=== PATIENT | male | born 1970 | race Native Hawaiian/Other Pacific Islander ===

== ENCOUNTER 2025-01-08 14:57 | Emergency (ER) | payer MEDICAID, SELFPAY ==
[2025-01-08 15:12] VITALS: BP 136/81; PULSE 124; RESP 18; TEMP 36.9; O2SAT 97; BMI 28.2
--- NOTE | 2025-01-08 15:49 | XR_ITS ---
Examination: PA chest single view Technique: Upright PA chest single view Exam date and time: January 08, 2025 1609 hrs. Indications: Shortness of breath coughing beginning one week ago. Findings: 14 x 10 cm masslike area in the right lung Mild prominence of ventricle No pulmonary edema Moderate osteopenia Impression: Large masslike area in the right lung, recommend CT scan chest post intravenous contrast follow-up to exclude pulmonary neoplasm
--- NOTE | 2025-01-08 15:51 | PD.EDADULT ---
ED General RME/HPI General Chief complaint: Flu Like Symptoms Stated complaint: Flu like symptoms Time Seen by Provider: 01/08/25 15:38 Arrival date/time: 01/08/25 14:57 RME / HPI RME / HPI narrative: 54-year-old male Citizen Of [place] patient with significant history of diabetes mellitus, chronic alcoholism, came in for evaluation regarding flulike symptoms. Patient has been having flulike symptoms for the last 5 days, initially noticed as cough, body aches, fever, abdominal pain, severity moderate. Patient denies any vomiting. Denies any diarrhea. Denies any other complaints. No medication was taken prior to ER visit. Patient arrived in this country more than [place] ago. Related Data Allergies Allergy/AdvReac Type Severity Reaction Status Date / Time No Known Allergies Allergy Verified 01/08/25 15:02 Review of Systems Review of Systems Narrative Review of Systems: Review of system reviewed and within normal limits except mentioned in HPI ED Exam Narrative Physical exam: VITAL SIGNS: Reviewed. GENERAL APPEARANCE: Alert and interactive, follows commands, no acute distress, HEAD AND FACE: Non-traumatic. ENT: PERRL, pink conjunctivitis, eyelid no trauma, Mucous membrane moist. NECK: Supple, nontender, no nuchal rigidity. CHEST: No tenderness, no crepitus, no paradoxical movement, no retractions. LUNGS: Clear, well ventilated, symmetric, no rales, no wheezing, no ronchi, no stridor, good breath sounds bilaterally. HEART: Regular rate, regular rhythm, no murmur, no gallops. ABDOMEN: Soft, positive bowel sounds, nondistended, no guarding, nontender, no rebound, no masses, RECTAL: Deferred. GENITAL: Deferred. NEUROLOGICAL: Gross motor function intact sensory function intact, Appropriate for age. MUSCULOSKELETAL: low back nontender, full range of motion. EXTREMITIES: Nontender, full range of motion. SKIN: Color pink, dry, no rash, no lacerations, no abrasions, no contusions. LYMPHATICS: Deferred. Course Quality Measures none Orders Category Date Time Status Bedside COVID-19 Antigen Test NOW Care 01/08/25 16:03 Completed Bedside Influenza A&B Antigen Test NOW Care 01/08/25 16:[address] Screening NOW Care 01/08/25 18:46 Completed EKG (ED ONLY) *Do not use* NOW Care 01/08/25 15:[address] chest abdomen pelvis w Stat Exams 01/08/25 18:45 Completed EKG (ED Only) Stat Exams 01/08/25 15:57 Draft XR chest 1V Stat Exams 01/08/25 15:49 Completed Acetone [Beta Hydroxybutyrate] Stat Lab 01/08/25 16:25 Completed B-Type Natriuretic Peptide Stat Lab 01/08/25 16:25 Completed CBC Stat Lab 01/08/25 16:25 Completed Cocci Serology IgM with reflex to IgG [Cocci Serology, Lab 01/08/25 20:30 Received Unk History] Stat Comprehensive Metabolic Panel Stat Lab 01/08/25 16:25 Completed Drug Screen,Urine Stat Lab 01/08/25 21:00 Completed Hemoglobin A1C [Glycohemoglobin w (eAG)] Stat Lab 01/08/25 16:25 Completed Partial Thromboplastin Time Stat Lab 01/08/25 16:25 Completed Procalcitonin Stat Lab 01/08/25 20:30 Completed Prothrombin Time with INR Stat Lab 01/08/25 16:25 Completed Troponin I Stat Lab 01/08/25 16:25 Completed Urinalysis, C/S if Indicated Stat Lab 01/08/25 21:00 Completed Acetaminophen Tab [Tylenol Tab] Med 01/08/25 19:59 Discontinued 1,000 mg PO X1 ONE Acetaminophen Tab [Tylenol Tab] Med 01/09/25 04:31 Discontinued 1,000 mg PO X1 ONE Clindamycin/Ns 600 mg Ivpb [Cleocin/Ns Ivpb] Med 01/09/25 04:33 Discontinued 600 mg in 50 ml IV X1 Ketorolac Inj [Toradol Inj] Med 01/09/25 04:34 Discontinued 30 mg IVP X1 ONE Piper/Tazo 3.375 gm Premix [Zosyn] Med 01/08/25 18:45 Discontinued 3.375 gm in 50 ml IV X1 Potassium Chloride [K-Dur] Med 01/08/25 20:06 Discontinued 40 meq PO X1 ONE Potassium Chloride [K-Dur] Med 01/09/25 05:53 Discontinued 40 meq PO X1 ONE Sodium Chloride 0.9% 1000 ml [Ns] 1,000 ml Med 01/08/25 15:51 Discontinued IV 999 mls/hr Vancomycin Inj 1,000 mg Med 01/09/25 05:53 Discontinued Sodium Chloride 0.9% 250 ml [Ns] 250 ml IV X1 cefTRIAXone/D5w 1gm IV premix [Rocephin/D5w 1gm IV Med 01/09/25 21:00 Discontinued premix] 1 gm in 50 ml IV Q12HR cefTRIAXone/D5w 1gm IV premix [Rocephin/D5w 1gm IV Med 01/09/25 04:45 Discontinued premix] 1 gm in 50 ml IV X1 Vital Signs Vital signs: Vital Signs Temperature 98.5 F 01/08/25 15:12 Pulse Rate 124 H 01/08/25 15:12 Respiratory Rate 18 01/08/25 15:12 Blood Pressure 136/81 H 01/08/25 15:12 Pulse Oximetry (%) 97 01/08/25 15:12 [facility] Patient data External records reviewed:: None Clinical information provided by:: patient Social determinants that could affect healthcare access:: none Patient has the following chronic illnesses:: Diabetes mellitus How is presenting disease/condition affected by chronic disease/condition?: exacerbated by Evaluation data The following diagnostics were reviewed and interpreted by me:: lab results, radiology exam(s) and EKG tracing(s) Lab and/or radiology exams considered but not ordered:: None Interpretation Summary: See results MDM Medications Medications considered but not ordered:: None Medication administrations:: Medication Administration History Discontinued Medications Acetaminophen (Acetaminophen 325 Mg Tablet) 1,000 mg PO X1 ONE Stop: 01/08/25 20:00 Last Admin: 01/08/25 20:15 Dose: 1,000 mg Documented By: MARGUERITE Acetaminophen (Acetaminophen 325 Mg Tablet) 1,000 mg PO X1 ONE Stop: 01/09/25 04:32 Last Admin: 01/09/25 05:21 Dose: 1,000 mg Documented By: MARGUERITE Sodium Chloride (Ns) 1,000 mls @ 999 mls/hr IV .Q1H1M ONE Stop: 01/08/25 16:51 Last Infusion: 01/08/25 21:40 Dose: Infused Documented By: Admin: 01/08/25 20:36 Dose: 999 mls/hr Documented By: MARGUERITE Piperacillin/Tazobactam/Dextrose (Zosyn) 3.375 gm in 50 mls @ 100 mls/hr IV X1 ONE Stop: 01/08/25 19:14 Last Infusion: 01/08/25 21:15 Dose: Infused Documented By: Admin: 01/08/25 20:34 Dose: 100 mls/hr Documented By: MARGUERITE Ceftriaxone Sodium/Dextrose (Rocephin/D5w 1gm Iv Premix) 1 gm in 50 mls @ 100 mls/hr IV Q12HR CHRISTIANO Stop: 01/16/25 20:59 Clindamycin/Sodium Chloride (Cleocin/Ns Ivpb) 600 mg in 50 mls @ 100 mls/hr IV X1 ONE Stop: 01/09/25 05:02 Last Infusion: 01/09/25 06:00 Dose: Infused Documented By: Admin: 01/09/25 05:25 Dose: 100 mls/hr Documented By: MARGUERITE Ceftriaxone Sodium/Dextrose (Rocephin/D5w 1gm Iv Premix) 1 gm in 50 mls @ 100 mls/hr IV X1 ONE Stop: 01/09/25 05:14 Last Infusion: 01/09/25 05:55 Dose: Infused Documented By: Admin: 01/09/25 05:24 Dose: 100 mls/hr Documented By: MARGUERITE Vancomycin HCl 1,000 mg/ (Sodium Chloride) 250 mls @ 150 mls/hr IV X1 ONE Stop: 01/09/25 07:32 Last Admin: 01/09/25 06:46 Dose: 150 mls/hr Documented By: MARGUERITE Ketorolac Tromethamine (Ketorolac Inj 30 Mg/Ml Vial) 30 mg IVP X1 ONE Stop: 01/09/25 04:35 Last Admin: 01/09/25 05:22 Dose: 30 mg Documented By: MARGUERITE Potassium Chloride (Potassium Chloride 20 Meq Tabcr) 40 meq PO X1 ONE Stop: 01/08/25 20:07 Last Admin: 01/08/25 20:58 Dose: 40 meq Documented By: Admin: 01/08/25 20:57 Dose: 40 meq Documented By: MARGUERITE Potassium Chloride (Potassium Chloride 20 Meq Tabcr) 40 meq PO X1 ONE Stop: 01/09/25 05:54 Last Admin: 01/09/25 06:46 Dose: 40 meq Documented By: MARGUERITE Potassium, IV Zosyn, IV fluids , Tylenol Consultations Consultation(s) initiated? (list below): No Diagnosis Differential Diagnosis ED Complaint MDM: Sepsis, pulmonary mass, Most likely diagnosis given after review of the tests above:: Sepsis, pulmonary mass rule out cocci Admission Indicated Admission indicated?: indicated Explain why admission is indicated or not indicated:: Pending final disposition Admission Request Was there a request for admission?: No Disposition Plan Disposition Plan: Transfer Medical Decision Making [facility] Narrative MDM Narrative: 54-year-old male Citizen Of [place] patient with significant history of diabetes mellitus, chronic alcoholism, came in for evaluation regarding flulike symptoms. Patient has been having flulike symptoms for the last 5 days, initially noticed as cough, body aches, fever, abdominal pain, severity moderate. Patient denies any vomiting. Denies any diarrhea. Denies any other complaints. No medication was taken prior to ER visit. Patient arrived in this country more than a year ago. Patient's workup was significant for leukocytosis of 21,000. With neutrophil predominance. Potassium 3.0 hemoglobin A1c of 10.8 Pro-Tae of 0.69 urinalysis no UTI. Chest x-ray showed Large masslike area in the right lung, recommend CT scan chest post intravenous contrast follow-up to exclude pulmonary neoplasm EKG shows sinus tachycardia, ventricular rate of 107 bpm, no ST segment elevation or depression noted. Care transferred to Dr. Sierra at 11:20 PM for final disposition. Differential Diagnosis Differential Diagnosis: Sepsis, pulmonary mass, Lab Data 01/08/25 16:25 01/08/25 16:25 Labs: Lab Results 01/08/25 01/08/25 01/08/25 Range/Units 16:25 20:30 21:00 WBC 21.0 H (3.8-10.6) Thou/mm3 RBC 5.72 (4.50-5.90) Miln/mm3 Hgb 12.1 L (13.5-16.0) g/dL Hct 37.6 L (41.0-53.0) % MCV 66 L (80-100) fL MCH 21.2 L (25.0-35.0) pg MCHC 32.2 (31.0-37.0) g/dl RDW Std Deviation 32.6 L (35.1-43.9) fL Plt Count 318 (140-440) Thou/mm3 Neut % (Auto) 82 H (37-80) % Lymph % (Auto) 8 L (10-50) % [place] % (Auto) 8 (0-12) % Eos % (Auto) 0 (0-10) % Baso % (Auto) 1 (0-2.5) % Neut # (Auto) 17.3 H (1.8-7.7) Thou/mm3 Lymph # (Auto) 1.7 (1.0-4.8) Thou/mm3 [place] # (Auto) 1.7 H (0.0-0.8) Thou/mm3 Eos # (Auto) 0.1 (0.0-0.5) Thou/mm3 Baso # (Auto) 0.1 (0.0-0.2) Thou/mm3 Immature Gran # (Auto) 0.19 H (0.00-0.00) Thou/mm3 Absolute Nucleated RBC 0.00 (0.00-0.00) Thou/mm3 Immature Gran % 1 H (0-0) % Nucleated RBC % 0 (0) /100 WBC PT 13.4 H (9.0-12.2) Seconds INR 1.2 (0.9-1.3) APTT 28.8 (22.0-36.0) Seconds Sodium 131 L (136-145) mMol/L Potassium 3.0 L (3.4-5.1) mMol/L Chloride 94 L (98-107) mMol/L Carbon Dioxide 26.9 (20.0-31.0) mMol/L Anion Gap 10 (7-16) BUN 11 (9-23) mg/dL Creatinine 1.0 (0.6-1.3) mg/dL Estim Creat Clear Calc 74.5 (>60) mL/min eGFR > 60 (60 - ) See Note BUN/Creatinine Ratio 11 L (12-20) Ratio Glucose 345 H (74-106) mg/dL Estimated Ave Glu mg/dL 263 H (80-131) mg/dL Hemoglobin A1c 10.8 H (4.8-6.0) % Hgb Calculated Osmolality 276 (275-295) Calcium 8.3 (8.3-10.6) mg/dL Corrected Calcium 8.8 (8.5-10.1) mg/dL Total Bilirubin 0.7 (0.3-1.2) mg/dL AST 33 (0-34) U/L ALT 21 (10-49) U/L Alkaline Phosphatase 136 H (46-116) U/L Troponin I < 0.020 (0.0-0.045) ng/mL B-Natriuretic Peptide 78 (0-100) pg/mL Total Protein 7.3 (5.7-8.2) gm/dL Albumin 3.4 L (3.5-5.0) gm/dL Globulin 3.9 H (2.3-3.5) gm/dL Albumin/Globulin Ratio 0.9 L (1.2-2.2) Beta-Hydroxybutyrate/Acetoacetate 0.2 (<0.6) mmol/L Procalcitonin 0.69 H (0.0-0.49) ng/ml Ur Collection Type Clean Catch Urine Color Yellow (Lt Yel-Yel) Urine Clarity Clear (Clear/Hazy) Urine pH 6.0 (5.0-7.0) Ur Specific [place] 1.029 (1.001-1.035) Urine Protein 1+ A (Neg - Trace) Urine Glucose (UA) 3+ A (Negative) Urine Ketones 1+ A (Negative) Urine Blood Negative (Negative) Urine Nitrite Negative (Negative) Urine Bilirubin Negative (Negative) Urine Urobilinogen (Auto) 3.0 (0.0-1.0) mg/dL Ur Leukocyte Esterase Negative (Negative) Urine RBC 0 (0-3) /hpf Urine WBC < 1 (0-5) /hpf Ur Squamous Epith Cells 0 (0-5) /hpf Urine Bacteria Rare (None) Hyaline Casts < 1 (0-1) /hpf Ur Culture Indicated? Not Indicated Urine Opiates Screen Negative (Negative) Urine Fentanyl Screen Negative (Negative) Ur Barbiturates Screen Negative (Negative) U Amphetamin/Meth Scrn Negative (Negative) U Benzodiazepines Scrn Negative (Negative) U Cocaine Metab Screen Negative (Negative) U Marijuana (THC) Screen Negative (Negative) Discharge Plan Plan Patient Disposition: Xfer Acute Care Fac Service Needed for Transfer: Interventional Radiology Patient condition on transfer: Stable Prescriptions/Referrals Referrals: No Primary/Family,Physician [Primary Care Provider] - In 1 week Problem List Clinical Impression: Abscess of lung, Sepsis Patient/Caregiver Discharge Instructions Print Language: [place] Stand Alone Forms: Cathy Award Info., Patient Portal Info Letter
--- NOTE | 2025-01-08 15:57 | EKG_ITS ---
[facility] Test Date: 2025-01-08 Pat Name: Fermín Beasley Department: Room: - Gender: Male Form Stripper: : 1970 Requested By: Sanam Lawrence Order Number: [id number] Reading MD: Sanam Lawrence Measurements Intervals [place] Rate: 107 P: 51 NH: 173 QRS: -7 QRSD: 102 T: 31 QT: 361 QTc: 482 Interpretive Statements SINUS TACHYCARDIA ABNORMAL RHYTHM ECG No previous ECG available for comparison /store/S0/[id number]/ecg/[id number].pdf
[2025-01-08 16:43] LABS: Basophils # (Auto) 0.1 Thou/mm3 (0.0-0.2); Basophils % (Auto) 1 % (0-2.5); Eosinophils # (Auto) 0.1 Thou/mm3 (0.0-0.5); Eosinophils % (Auto) 0 % (0-10); Hematocrit 37.6 % (41.0-53.0); Hemoglobin 12.1 g/dL (13.5-16.0); Immature Granulocytes % (Auto) 1 % (0-0); Immature Granulocytes Auto 0.19 Thou/mm3 (0.00-0.00); Lymphocytes # (Auto) 1.7 Thou/mm3 (1.0-4.8); Lymphocytes % (Auto) 8 % (10-50); Mean Corpuscular HGB Conc 32.2 g/dl (31.0-37.0); Mean Corpuscular Hemoglobin 21.2 pg (25.0-35.0); Mean Corpuscular Volume 66 fL (80-100); Monocytes # (Auto) 1.7 Thou/mm3 (0.0-0.8); Monocytes % (Auto) 8 % (0-12); Neutrophils # (Auto) 17.3 Thou/mm3 (1.8-7.7); Neutrophils % (Auto) 82 % (37-80); Nucleated Red Blood Cell % 0 /100 WBC (0); Platelet Count 318 Thou/mm3 (140-440); RDW Standard Deviation 32.6 fL (35.1-43.9); Red Blood Count 5.72 Miln/mm3 (4.50-5.90)
[2025-01-08 16:52] LABS: Glucose Estimated Average 263 mg/dL (80-131); Hemoglobin A1C 10.8 % Hgb (4.8-6.0)
[2025-01-08 16:56] LABS: Beta Hydroxybutyrate 0.2 mmol/L (<0.6)
[2025-01-08 16:57] LABS: B-Type Natriuretic Peptide 78 pg/mL (0-100); INR 1.2 (0.9-1.3); Partial Thromboplastin Time 28.8 Seconds (22.0-36.0); Prothrombin Time 13.4 Seconds (9.0-12.2)
[2025-01-08 16:59] LABS: Alanine Aminotransferase 21 U/L (10-49); Albumin, Serum 3.4 gm/dL (3.5-5.0); Albumin/Globulin Ratio 0.9 (1.2-2.2); Alkaline Phosphatase 136 U/L (46-116); Anion Gap 10 (7-16); Aspartate Amino Transferase 33 U/L (0-34); BUN/Creatinine Ratio 11 Ratio (12-20); Bilirubin,Total 0.7 mg/dL (0.3-1.2); Blood Urea Nitrogen 11 mg/dL (9-23); Calcium 8.3 mg/dL (8.3-10.6); Calcium (Corrected) 8.8 mg/dL (8.5-10.1); Carbon Dioxide 26.9 mMol/L (20.0-31.0); Chloride 94 mMol/L (98-107); Estimated Creatinine Clearance 74.5 mL/min (>60); Globulin 3.9 gm/dL (2.3-3.5); Glucose 345 mg/dL (74-106); Osmolality,Calculated 276 (275-295); Sodium 131 mMol/L (136-145); Total Protein 7.3 gm/dL (5.7-8.2); Troponin I < 0.020 ng/mL (0.0-0.045); eGFR > 60 See Note
--- NOTE | 2025-01-08 18:45 | XR_ITS ---
Examination: CT chest with intravenous contrast CT abdomen with intravenous contrast CT pelvis with intravenous contrast 2-D coronal and sagittal reconstructions Time of exam: January 08, 2025 11:40 PM Indications: Sepsis alert, shortness of breath chest pain beginning 2 days ago CTDI: vol (mGy) : 8.05 DLP: (mGycm): 583 Technique: Multiple axial images of the chest, abdomen and pelvis with intravenous contrast, 3.0 mm slice thickness. Images obtained post intravenous injection Isovue 370 60 cc. 2-D sagittal and coronal reconstructions. Low dose protocols were performed. One or more of the following dose reduction techniques were used; automated exposure control, adjustment of the mA and/or KV according to patient size, use of iterative reconstruction technique. Findings: No thoracic aortic aneurysmal dilatation Pulmonary artery segments are not enlarged Fluid containing mass in the right lower lobe at least 8.9 cm with adjacent pneumonic consolidation Liver is irregular in contour, no focal liver or splenic lesions Gallstones No pancreatic mass Left adrenal gland nodules, the largest is 24 mm No hydronephrosis No bowel obstruction Negative for pneumoperitoneum Degenerative change lumbar spine Impression: Fluid containing pulmonary mass in the right lower lobe with adjacent pneumonia, differential would include lung abscess versus loculated right pleural empyema Primary hepatocellular disease
[2025-01-08] MEDS: ACETAMINOPHEN 325 MG TABLET 1000 MG PO (20:15)
[2025-01-08] MEDS: PIPER/TAZO 3.375 GM PREMIX 3.375 GM/50 ML BAG IV (20:34)
[2025-01-08] MEDS: SODIUM CHLORIDE 0.9% 1000 ML 1,000 ML 999 ML IV (20:36)
[2025-01-08] MEDS: POTASSIUM CHLORIDE 20 mEq TABCR 40 MEQ PO ×2 (20:57→20:58)
[2025-01-08 21:00] VITALS: TEMP 36.8
[2025-01-08 21:11] VITALS: BP 133/88; O2SAT 95
[2025-01-08 21:16] LABS: Procalcitonin 0.69 ng/ml (0.0-0.49)
[2025-01-08 21:29] LABS: Collection Type, Urine Clean Catch; RBC,Urine 0 /hpf (0-3); Squamous Epithelial Cell,Urine 0 /hpf (0-5)
[2025-01-08 21:35] LABS: Bacteria,Urine Rare; Bilirubin,Urine Negative (Negative); Blood,Urine Negative (Negative); Clarity,Urine Clear (Clear/Hazy); Color,Urine Yellow (Lt Yel-Yel); Culture Indicated,Urine Not Indicated; Glucose, Urine 3+ (Negative); Hyaline Casts,Urine < 1 /hpf (0-1); Ketones,Urine 1+ (Negative); Leukocyte Esterase,Urine Negative (Negative); Nitrite,Urine Negative (Negative); Protein,Urine 1+ (Neg - Trace); Specific Gravity,Urine 1.029 (1.001-1.035); WBC,Urine < 1 /hpf (0-5)
[2025-01-08 21:39] LABS: Amphetamine/Methamp Scrn,U Negative (Negative); Barbiturate Screen,Urine Negative (Negative); Benzodiazepines Screen,Urine Negative (Negative); Benzoylecgonine Screen, Ur Negative (Negative); Fentanyl Screen,Urine Negative (Negative); Opiate Screen,Urine Negative (Negative); THC Screen,Urine Negative (Negative)
[2025-01-08 22:00] VITALS: BP 117/67; O2SAT 96
--- NOTE | 2025-01-08 23:10 | EDNOTE_ITS ---
Emergency Room Addendum Addendum Narrative: 2300: Care assumed from Sanam Lawrence NP. Past medical, surgical, social and family history reviewed. Vitals and home medications reviewed. Results and treatment plan discussed. I will assume the care of the patient at this time and will follow the patient, pending CT chest abdomen pelvis. Please refer to the emergency department record for history and examination from initial visit. 0104: I spoke with our household appliance repairer, who states we do not have IR available on the weekends. Patient will needs to be transferred. [facility] declined the patient for transfer due to not having IR on the weekends. [facility] declined due to not having IR available at their facility. 0550: Spoke with [facility]'s transfer center. Dr. Delvalel, the hospitalist, accepts the patient for transfer and requests the patient's fever to come down and replace the patient's potassium. RADIOLOGY RESULTS: [facility]eler[place] Preliminary Report Draft Patient: JOSE ROBERTO SCHREIBER Record#: [id number] Birthdate: 1970 Age/Sex: 54 / M Location: [facility] Attending Dr: Ordering Physician: Date of Service: Procedure(s): Accession Number(s): cc: ~ CT scan of the chest, abdomen and pelvis with intravenous contrast (axial sections with sagittal and coronal reformats) January 08, 2025 2336 hours Clinical History: Lung mass Comparison: None. Findings: Right lower lobe cystic lesion measuring 7.6 x 9.3 cm associated with peripheral consolidation. There is no pleural effusion or pneumothorax. The aorta is unremarkable without evidence of dissection or aneurysm. No evidence of mediastinal mass or lymphadenopathy. There is no pericardial effusion. The spleen, pancreas, and kidneys are unremarkable. Gallstones at the gallbladder neck without evidence of acute cholecystitis. No biliary duct dilation. Left adrenal gland nodules, the largest measuring 2.6 cm. Unremarkable right adrenal. Irregular liver margins. No evidence of bowel obstruction. No evidence of appendicitis. The urinary bladder is unremarkable. There is no free fluid or air. Degenerative changes of the imaged portions of the spine. Vascular calcifications. Coronary arteries calcifications. The portal vein is patent. Impression: 1. Cystic lesion in the right lower lobe, possibly abscess. 2. Right lower lobe consolidation suspicious for pneumonia. 3. Cirrhosis. 4. Left adrenal gland nodules, follow-up with MRI for characterization is recommended. Report Electronically Signed By: Rm Palacios 01/09/2025 12:47:14 AM
--- NOTE | 2025-01-09 00:47 | PRELIM_ITS ---
CT scan of the chest, abdomen and pelvis with intravenous contrast (axial sections with sagittal and coronal reformats) January 08, 2025 2336 hours Clinical History: Lung mass Comparison: None. Findings: Right lower lobe cystic lesion measuring 7.6 x 9.3 cm associated with peripheral consolidation. There is no pleural effusion or pneumothorax. The aorta is unremarkable without evidence of dissection or aneurysm. No evidence of mediastinal mass or lymphadenopathy. There is no pericardial effusion. The spleen, pancreas, and kidneys are unremarkable. Gallstones at the gallbladder neck without evidence of acute cholecystitis. No biliary duct dilation. Left adrenal gland nodules, the largest measuring 2.6 cm. Unremarkable right adrenal. Irregular liver margins. No evidence of bowel obstruction. No evidence of appendicitis. The urinary bladder is unremarkable. There is no free fluid or air. Degenerative changes of the imaged portions of the spine. Vascular calcifications. Coronary arteries calcifications. The portal vein is patent. Impression: 1. Cystic lesion in the right lower lobe, possibly abscess. 2. Right lower lobe consolidation suspicious for pneumonia. 3. Cirrhosis. 4. Left adrenal gland nodules, follow-up with MRI for characterization is recommended. Report Electronically Signed By: Rm Palacios 01/09/2025 12:47:14 AM [EST]
--- NOTE | 2025-01-09 02:12 | PC.NURSE ---
FAXED INFORMATION TO [facility] AND CALLED TRANSFER CENTER, THEY DON'T HAVE IR ON THE [place].
--- NOTE | 2025-01-09 02:38 | PC.NURSE ---
FAXED AND TALKED TO [facility], THEY DON'T HAVE IR AT THIS TIME.
--- NOTE | 2025-01-09 02:44 | PC.NURSE ---
FAXED INFORMATION AND TALKED TO [facility] .
--- NOTE | 2025-01-09 03:10 | PC.NURSE ---
demi from the [facility] called and all their faculties are currently at capacity but they might have IR in the morning.
--- NOTE | 2025-01-09 04:08 | PC.NURSE ---
[facility] CALLED BACK, NO IR OVERNIGHT.
[2025-01-09 04:27] VITALS: BP 158/96; PULSE 117; RESP 18; TEMP 39.6; O2SAT 96
[2025-01-09 05:21] VITALS: TEMP 39.6
[2025-01-09] MEDS: ACETAMINOPHEN 325 MG TABLET 1000 MG PO (05:21)
[2025-01-09 05:22] VITALS: TEMP 39.6
[2025-01-09] MEDS: KETOROLAC INJ 30 MG/ML VIAL IVP (05:22)
[2025-01-09] MEDS: cefTRIAXone/D5w 1gm IV premix 1 GM/50 ML BAG IV (05:24)
[2025-01-09] MEDS: CLINDAMYCIN/NS 600 MG IVPB 600 MG/50 ML BAG 100 MG IV (05:25)
--- NOTE | 2025-01-09 06:05 | PC.NURSE ---
[facility] RM [address] JOSSELIN PETERSEN.
[2025-01-09] MEDS: Vancomycin Inj 1,000 MG in SODIUM CHLORIDE 0.9% 250 ML 250 ML 150 MG IV (06:46)
[2025-01-09] MEDS: POTASSIUM CHLORIDE 20 mEq TABCR 40 MEQ PO (06:46)
[2025-01-09 06:52] VITALS: BP 117/72; PULSE 99; RESP 18; TEMP 37.7; O2SAT 97
[2025-01-09 06:55] VITALS: TEMP 37.7
[2025-01-09 08:45] VITALS: BP 109/74; PULSE 86; RESP 18; TEMP 37.4; O2SAT 97
--- NOTE | 2025-01-09 09:03 | PC.NURSE ---
Report given to facility RN and Judo Teacher. Patient picked up by EMS at 0904. Vitals stable at this time
[2025-01-11 14:49] LABS: Cocci Serology, IgM Negative (Negative)
[2025-01-12 12:41] LABS: Cocci Serology, IgG Negative (Negative)
== END 2025-01-09 09:00 | disposition short-term general hospital (02) ==
PROVIDERS: Internal Medicine; Nurse Practitioner Family; Emergency Provider Emergency Medicine
DX: A41.9 Sepsis, unspecified organism (principal); J85.2 Abscess of lung without pneumonia; K74.60 Unspecified cirrhosis of liver; E11.9 Type 2 diabetes mellitus without complications; F10.20 Alcohol dependence, uncomplicated
CPT/HCPCS: 36415; 71045; 71260; 74177; 80053; 80307; 81001; 82010; 83036; 83880; 84145; 84484; 85025; 85610; 85730; 86331; 86635; 87400; 87811; 93005; 96365; 96367; 96368; 99285; A4649; J0696; J1885; J2543; J3371; J7030; J7050; Q9967; S0077; A9270; J0737